=== PATIENT | female | born 1985 | race Caucasian/White ===

== ENCOUNTER 2019-05-10 19:28 | Inpatient (IN) | payer OTHER, MEDICARE ==
[2019-05-10] MEDS ORDERED: NICOTINE (7 MG/24 HR) PATCH TRANSDERM (21:00)
[2019-05-10] MEDS ORDERED: MISOPROSTOL 200 MCG TAB PR (21:00)
[2019-05-10] MEDS ORDERED: CARBOPROST 250 MCG INJ IM (21:00)
[2019-05-10] MEDS ORDERED: OXYTOCIN 30 UNITS/LR 500 ML IV ×2 (21:00)
[2019-05-10] MEDS ORDERED: IBUPROFEN 600 MG TAB PO (21:00)
[2019-05-10] MEDS ORDERED: METHYLERGONOVINE 0.2 MG INJ IM (21:00)
[2019-05-10] MEDS ORDERED: MISOPROSTOL 50 MCG CAPSULE VAG (21:00)
[2019-05-10] MEDS ORDERED: OXYCODONE/ASPIRIN (4.88/325) TAB PO (21:00)
[2019-05-10] MEDS ORDERED: FENTAnyl 50 MCG/ML VIAL IV (21:00)
[2019-05-10] MEDS ORDERED: LIDOCAINE 1% (MPF) 30 ML INJ INJ (21:00)
[2019-05-10 21:01] LABS: ADD MAN DIFF? NO
[2019-05-10] MEDS: LACTATED RINGER'S 1,000 ML IV (21:03)
[2019-05-10 21:05] LABS: WHITE BLOOD COUNT 11.4 10^3/ul (4.8-10.8)
[2019-05-10 21:05] LABS: BASOPHILS % 0.4 % (0.0-2.0); EOSINOPHILS # 0.2 10^3/ul (0.0-0.5); EOSINOPHILS % 1.4 % (0.0-7.0); HEMATOCRIT 32.5 % (37.0-47.0); HEMOGLOBIN 10.4 g/dl (12.0-16.0); LYMPHOCYTES # 2.7 10^3/ul (0.8-2.9); LYMPHOCYTES % 23.9 % (15.0-51.0); MEAN CORPUSCULAR HEMOGLOBIN 25.3 pg (29.0-33.0); MEAN CORPUSCULAR VOLUME 79.1 fl (82.0-101.0); MEAN PLATELET VOLUME 12.1 fl (7.4-10.4); MONOCYTES % 8.9 % (0.0-11.0); NEUTROPHIL # 7.4 10^3/ul (1.6-7.5); NEUTROPHILS % 64.8 % (39.0-77.0); PLATELET COUNT 296 10^3/UL (140-415); RED BLOOD COUNT 4.11 10^6/ul (4.20-5.40); RED CELL DISTRIBUTION WIDTH 14.8 % (11.5-14.5)
[2019-05-10 21:30] LABS: PROTIME 13.3 Sec (11.9-14.9)
[2019-05-10 21:31] LABS: PARTIAL THROMBOPLASTIN TIME 28.4 Sec (23.0-35.0)
[2019-05-10 21:33] LABS: RAPID PLASMA REAGIN NONREACTIVE (NR)
[2019-05-10 21:44] LABS: HEPATITIS B SURFACE ANTIGEN NEGATIVE (NEGATIVE)
[2019-05-10] MEDS: MISOPROSTOL 50 MCG CAPSULE PO (21:53)
[2019-05-10 22:07] LABS: AMPHETAMINE/METHAMPHETAMINE Negative (NEGATIVE); BARBITURATES Negative (NEGATIVE); BENZODIAZEPINES Negative (NEGATIVE); CANNABINOIDS Negative (NEGATIVE); COCAINE Negative (NEGATIVE); OPIATES Negative (NEGATIVE)
[2019-05-11] MEDS: LACTATED RINGER'S 1,000 ML IV ×3 (00:12→10:02)
[2019-05-11] MEDS ORDERED: MISOPROSTOL 50 MCG CAPSULE PO (01:00)
[2019-05-11] MEDS: MISOPROSTOL 50 MCG CAPSULE PO ×3 (01:54→19:00)
[2019-05-11] MEDS: FERROUS SULFATE (EC) 325 MG TAB PO (09:00)
[2019-05-11] MEDS: BUTORPHANOL 2 MG INJ IV (10:02)
[2019-05-11] MEDS: OXYTOCIN 30 UNITS/LR 500 ML IV ×3 (13:15→18:05)
[2019-05-11] MEDS ORDERED: CARBOPROST 250 MCG INJ IM (13:30)
[2019-05-11] MEDS ORDERED: ACETAMINOPHEN 325 MG TAB PO (13:30)
[2019-05-11] MEDS ORDERED: ZOLPIDEM 5 MG TAB PO (13:30)
[2019-05-11] MEDS ORDERED: NACL 0.9% 3 ML SYG IV (13:30)
[2019-05-11] MEDS ORDERED: LANOLIN HPA 1 PKT TOP (13:30)
[2019-05-11] MEDS ORDERED: DIPHENHYDRAMINE 25 MG CAP PO (13:30)
[2019-05-11] MEDS ORDERED: METHYLERGONOVINE 0.2 MG INJ IM (13:30)
[2019-05-11] MEDS ORDERED: OXYTOCIN 30 UNITS/LR 500 ML IV (13:30)
[2019-05-11] MEDS ORDERED: BENZOCAINE 20% 56 ML SPRAY TOP ×2 (13:30)
[2019-05-11] MEDS ORDERED: ONDANSETRON 4 MG INJ IV (13:30)
[2019-05-11] MEDS ORDERED: HYDROCODONE/APAP (5/325) TAB PO (13:30)
[2019-05-11] MEDS ORDERED: MISOPROSTOL 200 MCG TAB PR (13:30)
[2019-05-11] MEDS: IBUPROFEN 600 MG TAB PO ×2 (17:22→23:37)
[2019-05-11] MEDS: WITCH HAZEL/GLYCERIN PAD PR (23:17)
[2019-05-12] MEDS: LACTATED RINGER'S 1,000 ML IV ×3 (03:34→20:51)
[2019-05-12] MEDS: IBUPROFEN 600 MG TAB PO ×5 (05:34→19:29)
[2019-05-12 08:12] LABS: ADD MAN DIFF? NO
[2019-05-12 08:19] LABS: WHITE BLOOD COUNT 14.5 10^3/ul (4.8-10.8)
[2019-05-12 08:19] LABS: BASOPHIL # 0.1 10^3/ul (0.0-0.1); BASOPHILS % 0.4 % (0.0-2.0); EOSINOPHILS # 0.1 10^3/ul (0.0-0.5); EOSINOPHILS % 0.8 % (0.0-7.0); HEMATOCRIT 28.2 % (37.0-47.0); LYMPHOCYTES # 2.6 10^3/ul (0.8-2.9); LYMPHOCYTES % 18.1 % (15.0-51.0); MEAN CORPUSCULAR HEMOGLOBIN 25.3 pg (29.0-33.0); MEAN CORPUSCULAR HGB CONC 31.9 g/dl (32.0-37.0); MEAN CORPUSCULAR VOLUME 79.2 fl (82.0-101.0); MEAN PLATELET VOLUME 11.8 fl (7.4-10.4); MONOCYTE # 1.1 10^3/ul (0.3-0.9); MONOCYTES % 7.6 % (0.0-11.0); NEUTROPHIL # 10.5 10^3/ul (1.6-7.5); NEUTROPHILS % 72.5 % (39.0-77.0); PLATELET COUNT 254 10^3/UL (140-415); RED BLOOD COUNT 3.56 10^6/ul (4.20-5.40); RED CELL DISTRIBUTION WIDTH 14.8 % (11.5-14.5)
[2019-05-12] MEDS: SENNA/DOCUSATE NA (8.6MG/50MG) TAB PO (08:49)
[2019-05-12] MEDS: MAGNESIUM HYDROXIDE 30ML CUP PO (16:22)
[2019-05-13] MEDS: SENNA/DOCUSATE NA (8.6MG/50MG) TAB PO ×2 (00:55→09:15)
[2019-05-13] MEDS: LACTATED RINGER'S 1,000 ML IV (04:51)
[2019-05-13] MEDS: IBUPROFEN 600 MG TAB PO ×3 (06:00→09:15)
[2019-05-13] MEDS ORDERED: MEASLES,MUMPS,RUBELLA VACCINE INJ SC* (09:00)
[2019-05-13] MEDS ORDERED: DIPHTH/TET/ACEL PERTUSS (ADULT) 0.5 ML VIAL IM* (09:00)
== END 2019-05-13 15:48 | disposition home or self-care (01) | DRG 807 ==
LOC: PP1 05-11 14:45 → L-D 19:28
PROVIDERS: Obstetrics & Gynecology
PROC: 10E0XZZ Delivery of Products of Conception, External Approach (ICD-10-PCS; principal; 2019-05-11)
PROC: 4A1HXCZ Monitoring of Products of Conception, Cardiac Rate, External Approach (ICD-10-PCS; 2019-05-11)
DX: O76 Abnormality in fetal heart rate and rhythm complicating labor and delivery (principal); Z37.0 Single live birth; O69.81X0 Labor and delivery complicated by cord around neck, without compression, not applicable or unspecified; O69.2XX0 Labor and delivery complicated by other cord entanglement, with compression, not applicable or unspecified; O48.0 Post-term pregnancy; Z3A.40 40 weeks gestation of pregnancy
CPT/HCPCS: 76815; 80307; 85025; 85610; 85730; 86592; 86850; 86900; 86901; 87340